=== PATIENT | male | born 1960 | race Caucasian/White ===

== ENCOUNTER 2018-01-27 14:42 | Emergency (ER) | payer OTHER ==
[~2018-01-27] VITALS: Ht 177.8 cm; Wt 81.6 kg
[2018-01-27] MEDS ORDERED: MEDROLPACK PO (16:31)
[2018-01-27] MEDS ORDERED: ZITHROMAX500 MG PO (16:31)
[2018-01-27] MEDS ORDERED: KETO10TA2 PO (16:31)
== END 2018-01-27 16:51 | disposition home or self-care (01) ==
LOC: ER 14:42
DX: K11.21 Acute sialoadenitis (principal)